=== PATIENT | female | born 1945 | race Caucasian/White ===

== ENCOUNTER 2022-02-13 13:01 | Outpatient (REF) | payer MEDICARE, SELFPAY ==
--- NOTE | ~2022-02-13 | MM_ITS ---
EXAMINATION: BONE DENSITOMETRY CLINICAL INDICATION: Osteoporosis. COMPARISON: Previous BD dated 11/07/2019 and baseline BD dated 10/27/2017. TECHNIQUE: Using a tapviva DXA System (software version: 13.1) manufactured by [employer], dual-energy x-ray absorptiometry was performed of the lumbar spine and left hip. The images are of good technical quality. Summary results are attached. FINDINGS: AP SPINE L1-L4 (excluding L3): The data of L1-L4 has been changed to exclude the L3 vertebral body, because degenerative changes at this level may cause overestimation of lumbar spine density. Current: BMD 0.859 g/cm2, Z-score -1.4, T-score -2.6, osteoporosis, 3.6% increase from previous, 6.7% increase from baseline (<5% change is not significant). Prior: BMD 0.829 g/cm2. Baseline: BMD 0.805 g/cm2. LEFT FEMUR, NECK: Current: BMD 0.830 g/cm2, Z-score 0.1, T-score -1.5, osteopenia. Prior: BMD 0.742 g/cm2. Baseline: BMD 0.686 g/cm2. LEFT FEMUR, TOTAL: Current: BMD 0.932 g/cm2, Z-score 0.8, T-score -0.6, normal, 9.1% increase from previous, 14.2% increase from baseline (<5% change is not significant). Prior: BMD 0.854 g/cm2. Baseline: BMD 0.816 g/cm2. IDENTIFIED RISK FACTORS: Menopause, history of fracture (adult), osteoporosis. HISTORY OF FRACTURE: Wrist. MEDICATIONS: Calcium, vitamin D. MM/XR DEXA axial skeleton IMPRESSION: 1. DIAGNOSIS: Osteoporosis based on the lowest T-score value of -2.6 in the lumbar spine applying World Health Organization criteria. 2. 10-YEAR FRACTURE RISK PREDICTION, FRAX: According to the guidelines, FRAX calculation should only be performed on patients in the osteopenia bone density category. Therefore, FRAX was not performed on this patient. 3. Treatment Recommendations: NOF guidelines recommend consideration for treatment in postmenopausal women and men age 50 and older presenting with the following: -A hip or vertebral (clinical or morphometric) fracture. -T-score less than or equal to -2.5 at the femoral neck or spine after appropriate evaluation to exclude secondary causes. -Low bone mass at the hip or spine and a 10-year fracture probability by FRAX of greater than or equal to 3% for hip fracture or greater than or equal to 20% for major osteoporotic fracture based on the [place] adapted WHO algorithm. 4. Other Recommendations: All treatment decisions require clinical judgment and consideration of individual patient factors, including patient preferences, comorbidities, previous drug use, risk factors not captured in the FRAX model (e.g. frailty, falls, vitamin D deficiency, increased bone turnover, interval significant decline in bone density) and possible under or overestimation of fracture risk by FRAX. Additional medical evaluation for secondary cause of low bone mineral density may be appropriate. FUTURE SCAN RECOMMENDATION: People with diagnosed cases of osteoporosis or at high risk for fracture should have regular bone mineral density tests. For patients eligible for Medicare, routine testing is allowed once every 2 years. The testing frequency can be increased to one year for patients who have rapidly progressing disease, those who are receiving or discontinuing medical therapy to restore bone mass, or have additional risk factors.
== END 2022-02-13 13:02 | disposition home or self-care (01) ==
LOC: HO.MAMMO 13:01
PROVIDERS: PCP Internal Medicine Geriatric Medicine; Visit Provider Internal Medicine Geriatric Medicine
DX: Z13.820 Encounter for screening for osteoporosis (principal); M81.0 Age-related osteoporosis without current pathological fracture; Z78.0 Asymptomatic menopausal state
CPT/HCPCS: 77080

== ENCOUNTER 2022-12-23 07:53 | Outpatient (AMB) | payer MEDICARE, SELFPAY ==
[2022-12-23 08:08] VITALS: BP 122/70; PULSE 89; TEMP 36.3; O2SAT 97; BMI 28.3
--- NOTE | 2022-12-23 08:08 | MHC.OFFVIS ---
Intake Vital Signs 12/23/22 08:08 Height 5 ft 3 in Weight 159 lb 9.835 oz BMI 28.3 BP 122/70 Blood Pressure Location Lt brachial Position Sitting Pulse 89 Pulse Source Pulse Oximeter Temp 97.4 F Temp Source Skin Pulse Oximetry (%) 97 Intake Visit Reasons: +MOLLY/Elev ESR - Confirmed Intake Note: New pt presents today for consult. C/o headaches, dizziness. Reports she broke L1, no surgeries; multiple fractures Meat Stringer Required: Yes Meat Stringer Language: Video Effects Editor Name: Marla Accompanied by: Daughter in law Marla Allergies Iodinated Contrast Media [IODINATED CONTRAST- ORAL AND IV DYE] Allergy (Unknown, Verified 12/23/22 08:09) SEVERE REACTION 08/21/2018 Medication List - Last Reconciled 12/23/22 by Madhu Umaña MD alendronate 70 mg PO QWEEK atorvastatin 40 mg PO DAILY calcium carbonate 500 mg PO BID cholecalciferol (vitamin D3) 50 mcg PO QAM omeprazole 20 mg PO DAILY prednisone 10 mg PO DAILY HPI HPI Comments History of Present Illness Details The patient presents with a iribvole-fw-hok who translates. The [id number] also has the patient's daughter on the phone who has additional history. Patient does live alone but has much help in the home from the family. The patient had the development of lower back pain over the last few years. She also has chronic LLQ abdominal pain. The back paim was apparently worse about 6 months ago with some right lateral pain that radiated to the right buttock. She then had a fall and that exacerbated the pain. This cause some right hip pain. She received a corticosteroid injection for the hip pain in the bursal region and that has helped that area. There is still back pain. This is now more commonly occurring in the left lumbar region. She was told she had an L1 fracture with this fall. She is now on alendronate for osteoporosis. She also had blood test showing a sed rate is 70, rheumatoid factor negative, and a positive MOLLY. She was treated with prednisone, presumably for the headache. The prednisone made her jittery so she tapered off it. The headache is somewhat better now. She does not have any episodic visual symptoms or jaw claudication. [facility] Surgical History (Updated 12/23/22 @ 08:12 [facility] H/O wrist surgery Hx of colonoscopy Family History (Updated 04/25/20 @ 14:56 by Melanie Taylor, [facility]) Father Diabetes Mother Diabetes Social History (Updated 12/23/22 @ 08:11 by Freda Rapp [facility]) Alcohol intake: current Alcohol intake frequency: does not drink Patient Tobacco Use Status: Never used Tobacco Review of Systems Const Details: Some intentional weight loss in the last year. This has enabled her to get off medications for type 2 diabetes. Negative for appetite change, fever, chills, malaise and fatigue Eyes Details: She regularly uses eyedrops for dry eyes. Negative for vision change, and dizziness ENT Details: Some oral dryness as well. No trouble with swallowing solids. Negative for hearing change, tinnitus, oral ulcer, nose bleeds. Card Details: Negative chest pain, edema and syncope Resp Details: Very rarely she uses an inhaler for asthma. Recently negative for SOB, cough and wheezing GI Details: Some constipation and chronic left lower quadrant pain. Recent CT scan did show some diverticulosis but no other abnormalities. Negative indigestion/heartburn, nausea, abdominal pain, bowel changes, diarrhea, constipation and bloody stool. Details: Negative for dysuria, hematuria, nocturia, decreased force/flow and genital discharge Skin/Breast Details: Negative for itching, rash, hives, Raynaud's symptoms, sun sensitivity, and skin cancer Neuro Details: Negative for epilepsy, palsy, stroke, changes in speech, tingling and weakness Psych Details: Negative for anxiety, depression and stress Endo Details: Negative for polyuria and polydypsia Luis E/Lymph Details: Negative for excessive bruising or bleeding. Physical Exam Vital Signs: Last Vital Signs Temp 97.4 F 12/23/22 08:08 Pulse 89 12/23/22 08:08 BP 122/70 12/23/22 08:08 Pulse Ox 97 12/23/22 08:08 BMI result Body Mass Index 28.3 APPEARANCE: Patient in no acute distress EYES no redness, pupils equal and reactive to light, eyelids normal. No temporal artery tenderness, redness or swelling. EARS: External ear normal, canal clear and tympanic membrane normal. NOSE/SINUS: Airflow through both nares, no nasal discharge, no bleeding THROAT: Oral mucosa moist, no ulcerations. No TMJ tenderness NECK: No thyromegaly or masses, no adenopathy, trachea midline. HEART: Regulrar rhythm, S1-S2 heard, no murmurs, rubs or gallops. LUNG: Clear to percussion and auscultation ABD: Normal bowel sounds, no organomegaly, masses or tenderness. EXTREMITIES: No edema, no calf tenderness, normal peripheral pulses. NEURO: Oriented and alert x3. No focal weakness. Reflexes symmetric. Gait normal. SKIN: No inflammatory or neoplastic lesions. Normal color and turgor JOINT EXAM:.?? Cervical Spine:.? Full range of motion without pain; no tenderness. Thoracic Spine:.? No scoliosis.? No tenderness on palpation. Lumbar Spine:.? Alignment normal.? Mild pain with extremes of normal range of motion. No tenderness. Chest Wall:.? No tenderness, swelling, increased warmth or erythema. Hands:.? Normal pain-free range of motion without tenderness, swelling, increased warmth or erythema. Able to make a full fist and has a good appliance service representative strength. Wrists:.? Left: Evidence for previous surgery for a fracture. She flexes and extends to 60 degrees without pain. No soft tissue swelling, tenderness, redness or warmth. Right: Normal pain-free range of motion without tenderness, swelling, increased warmth or erythema. Elbows:. Normal pain-free range of motion without tenderness, swelling, increased warmth or erythema. Shoulders:.?? Full range of motion without pain. No tenderness, weakness, swelling, increased warmth or erythema. Hips:.? Left: Mild lumbar pain with extremes of external rotation or abduction. No groin pain with motion. Right: Full range of motion without pain. Hip bursa:.? Mild bilateral trochanteric tenderness. Knees:.?? Normal pain-free range of motion without tenderness, swelling, increased warmth or erythema.? There is no effusion or crepitation Ankles:.? Normal pain-free range of motion without tenderness, swelling, increased warmth or erythema. Feet:.? Normal pain-free range of motion without tenderness, swelling, increased warmth or erythema. Tender points:.? Mild tenderness to digital palpation at the lateral epicondyle, knees, greater trochanter area bilaterally. ? Results Reviewed Results Reviewed: 10/2022 Lab from PCP: MOLLY 1:640, centromere pattern. ESR 70, RF neg Assessment & Plan Assessment & Plan (1) MOLLY positive: Code(s): R76.8 - Other specified abnormal immunological findings in serum (2) Osteoporosis: Comment: alendronate started 2022 Code(s): M81.0 - Age-related osteoporosis without current pathological fracture (3) Osteoarthritis of lumbar spine: Code(s): M47.816 - Spondylosis without myelopathy or radiculopathy, lumbar region Plan She had a positive MOLLY with a centromere pattern. She does not realy have findings of SLE or CREST syndrome. We will check into this further with other more specific serologies, inflammatory markers, and CBC. The back pain is consistent with lumbar degenerative disease. I think the pain from the fracture has subsided now. She is on the alendronate for osteoporosis in that seems appropriate. She still has this left lower quadrant pain but had a CT scan done back in May. That did not show evidence for any other pathology other than diverticulosis. She apparently did receive some physical therapy after the lumbar fracture. Light aerobic activities are encouraged. We will get back to her with the results of her studies but I do not see reason for follow-up at this point Rheumatology. Orders: Orders Comprehensive Met. Panel Today M81.0 - Age-related osteoporosis without current pathological fracture, R76.8 - Other specified abnormal immunological findings in serum C Reactive Protein Today M81.0 - Age-related osteoporosis without current pathological fracture, R76.8 - Other specified abnormal immunological findings in serum Complete Blood Count Auto Diff Today M81.0 - Age-related osteoporosis without current pathological fracture, R76.8 - Other specified abnormal immunological findings in serum Erythrocyte Sedimentation Rate Today M81.0 - Age-related osteoporosis without current pathological fracture, R76.8 - Other specified abnormal immunological findings in serum Complement C3 Today M81.0 - Age-related osteoporosis without current pathological fracture, R76.8 - Other specified abnormal immunological findings in serum Complement C4 Today M81.0 - Age-related osteoporosis without current pathological fracture, R76.8 - Other specified abnormal immunological findings in serum Anti DNA DS Antibody Today M81.0 - Age-related osteoporosis without current pathological fracture, R76.8 - Other specified abnormal immunological findings in serum Anti Extractable Nuclear Ag Today M81.0 - Age-related osteoporosis without current pathological fracture, R76.8 - Other specified abnormal immunological findings in serum Protein Electrophoresis,Ran Ur Today M81.0 - Age-related osteoporosis without current pathological fracture, R76.8 - Other specified abnormal immunological findings in serum Coding Level of Care Code New Pt Level 3 (56078) Diagnoses MOLLY positive R76.8 Osteoporosis M81.0 Osteoarthritis of lumbar spine M47.816
== END 2022-12-23 08:52 | disposition home or self-care (01) ==
PROVIDERS: PCP Internal Medicine Geriatric Medicine; Visit Provider Internal Medicine Rheumatology
DX: R76.8 Other specified abnormal immunological findings in serum (principal); M81.0 Age-related osteoporosis without current pathological fracture; M47.816 Spondylosis without myelopathy or radiculopathy, lumbar region
CPT/HCPCS: 99203

== ENCOUNTER → 2022-12-23 07:53 | Outpatient (BNVA) | payer MEDICARE, SELFPAY | PROVIDERS: PCP Internal Medicine Geriatric Medicine; Visit Provider Internal Medicine Rheumatology | DX: R76.8 Other specified abnormal immunological findings in serum (principal); M81.0 Age-related osteoporosis without current pathological fracture; M47.816 Spondylosis without myelopathy or radiculopathy, lumbar region | CPT/HCPCS: 99202 ==

== ENCOUNTER 2022-12-23 08:55 | Outpatient (REF) | payer MEDICARE, SELFPAY ==
[2022-12-23 10:54] LABS: MANUAL DIFF FLAG NO
[2022-12-23 11:00] LABS: Basophils Absolute Auto 0.1 X10*3/uL (0.0-0.2); Basophils Percent Auto 0.4 % (0-2); Eosinophils Percent Auto 0.2 % (0-4); Hematocrit 47.8 % (37.0-47.0); Hemoglobin 15.1 g/dl (12.0-16.0); Imm Gran Abs Auto 0.08 X10*3/uL (0.00-0.03); Imm Gran Pct Auto 0.6 % (0.0-0.4); Lymphocytes Absolute Auto 1.5 X10*3/uL (1.2-4.9); Mean Corpuscular HGB Conc 31.6 g/dl (31.0-35.0); Mean Corpuscular Hemoglobin 31.4 pg (27.0-33.0); Mean Corpuscular Volume 99.4 fL (80.0-98.0); Mean Platelet Volume 12.7 fL (9.4-12.3); Monocytes Absolute Auto 0.8 X10*3/uL (0.1-1.2); Monocytes Percent Auto 5.8 % (2-11); Neutrophils Absolute Auto 10.8 x10*3/uL (2.0-8.3); Platelet Count 195 X10*3/uL (160-400); Red Blood Count 4.81 X10*6/uL (4.20-5.50); Red Cell Distribution Width 13.2 % (11.0-16.0); White Blood Count 13.2 X10*3/uL (4.8-10.8)
[2022-12-23 11:07] LABS: Alanine Aminotransferase 17 U/L (0-31); Albumin Level 3.9 g/dL (3.5-5.0); Alkaline Phosphatase 52 U/L (39-117); Anion Gap 13 (12-20); Aspartate Amino Transferase 17 U/L (5-31); Blood Urea Nitrogen 19 mg/dL (9-16); C Reactive Protein 0.12 mg/dL (< or = 0.50); Calcium 9.9 mg/dL (8.4-10.2); Carbon Dioxide 29 mmol/L (22-29); Chloride 107 mmol/L (96-108); Estimated Glomerular Filt Rate > 60; Glucose Random 122 mg/dL (60-115); Potassium 4.4 mmol/L (3.3-5.1); Sodium 145 mmol/L (135-145); Total Protein 6.5 g/dL (6.5-8.0)
[2022-12-23 11:42] LABS: Erythrocyte Sedimentation Rate 4 MM/HR (0-20)
[2022-12-24 17:28] LABS: Complement C3 136 mg/dL (83-193)
[2022-12-24 21:52] LABS: Anti DNA DS Antibody <1 IU/mL; SM/Ribonucleoprotein Ab <1.0 NEG AI (<1.0 NEG); Smith Protein <1.0 NEG AI (<1.0 NEG)
[2022-12-29 10:48] LABS: PEU-Protein Creat Ratio Rand 0.131 (0.024-0.184); PEU-Rand. Prot/Creat Ratio 131 mg/g creat (24-184); PEU-Random Ur. Gamma Globulin 0 %; PEU-Random Urine A1 Globulin 0 %; PEU-Random Urine A2 Globulin 0 %; PEU-Random Urine Albumin 100 %; PEU-Random Urine Beta Globulin 0 %; PEU-Random Urine Creatinine 107 mg/dL (20-275); PEU-Random Urine Protein 14 mg/dL (5-24)
== END 2022-12-23 08:56 | disposition home or self-care (01) ==
LOC: HO.10HDL 08:55
PROVIDERS: Visit Provider Internal Medicine Rheumatology
DX: M81.0 Age-related osteoporosis without current pathological fracture (principal); M47.816 Spondylosis without myelopathy or radiculopathy, lumbar region; R76.8 Other specified abnormal immunological findings in serum
CPT/HCPCS: 80053; 82570; 84156; 84166; 85025; 85652; 86140; 86160; 86225; 86235

== ENCOUNTER 2022-12-24 15:16 | Outpatient (REF) | payer MEDICARE, SELFPAY ==
[2022-12-24 17:13] LABS: Erythrocyte Sedimentation Rate 7 MM/HR (0-20)
== END 2022-12-24 15:17 | disposition home or self-care (01) ==
LOC: HO.HHCL 15:16
PROVIDERS: Visit Provider Internal Medicine Geriatric Medicine
DX: M35.3 Polymyalgia rheumatica (principal)
CPT/HCPCS: 36415; 85652

== ENCOUNTER 2023-06-24 09:38 | Outpatient (REF) | payer MEDICARE, SELFPAY ==
--- NOTE | ~2023-06-24 | XR_ITS ---
EXAMINATION: XR KNEE, RIGHT CLINICAL INFORMATION: Reason for Exam Chronic right knee pain COMPARISON: None TECHNIQUE: 4 views of the knee FINDINGS: No acute fracture or dislocation. Joint spaces are maintained. No joint effusion. Soft tissues are unremarkable. XR/XR knee RT 4V IMPRESSION: * No acute osseous abnormality.
[2023-06-24 11:52] LABS: MANUAL DIFF FLAG NO
[2023-06-24 12:09] LABS: Basophils Percent Auto 0.5 % (0-2); Eosinophils Absolute Auto 0.1 X10*3/uL (0.0-0.4); Eosinophils Percent Auto 1.4 % (0-4); Hematocrit 46.3 % (37.0-47.0); Hemoglobin 14.8 g/dl (12.0-16.0); Imm Gran Abs Auto 0.02 X10*3/uL (0.00-0.03); Imm Gran Pct Auto 0.3 % (0.0-0.4); Lymphocytes Percent Auto 29.5 % (20-40); Mean Corpuscular Hemoglobin 31.3 pg (27.0-33.0); Mean Corpuscular Volume 97.9 fL (80.0-98.0); Mean Platelet Volume 12.2 fL (9.4-12.3); Monocytes Absolute Auto 0.6 X10*3/uL (0.1-1.2); Monocytes Percent Auto 8.3 % (2-11); Platelet Count 235 X10*3/uL (160-400); Red Blood Count 4.73 X10*6/uL (4.20-5.50); Red Cell Distribution Width 13.6 % (11.0-16.0); White Blood Count 6.6 X10*3/uL (4.8-10.8)
[2023-06-24 12:35] LABS: Alanine Aminotransferase 14 U/L (0-31); Alkaline Phosphatase 54 U/L (39-117); Anion Gap 12 (12-20); Aspartate Amino Transferase 19 U/L (5-31); Bilirubin Total 1.3 mg/dL (0.0-1.0); Blood Urea Nitrogen 17 mg/dL (9-16); Calcium 9.3 mg/dL (8.4-10.2); Carbon Dioxide 27 mmol/L (22-29); Chloride 107 mmol/L (96-108); Cholesterol 252 mg/dL (<200); Estimated Glomerular Filt Rate > 60; Glucose Random 99 mg/dL (60-115); HDL Cholesterol 57 mg/dL (>40); LDL Cholesterol Calculated 171 mg/dL (<100); Potassium 4.3 mmol/L (3.3-5.1); Sodium 142 mmol/L (135-145); Total Protein 6.9 g/dL (6.5-8.0); Triglycerides 121 mg/dL (<150)
== END 2023-06-24 09:39 | disposition home or self-care (01) ==
LOC: HO.HHCL 09:38
PROVIDERS: Visit Provider Internal Medicine Geriatric Medicine
DX: R07.9 Chest pain, unspecified (principal); E11.9 Type 2 diabetes mellitus without complications; M25.561 Pain in right knee; G89.29 Other chronic pain; L98.9 Disorder of the skin and subcutaneous tissue, unspecified
CPT/HCPCS: 36415; 73564; 80053; 80061; 85025

== ENCOUNTER 2023-06-30 15:33 | Outpatient (REF) | payer MEDICARE, SELFPAY ==
--- NOTE | ~2023-06-30 | XR_ITS ---
EXAMINATION: XR THORACOLUMBAR SPINE CLINICAL INFORMATION: Back pain after falling COMPARISON: None available. TECHNIQUE: 2 views FINDINGS: No fracture or destructive process in the thoracic spine. Severe compression fracture L1 again observed. Paraspinal soft tissues normal. XR/XR thoracic spine 2V IMPRESSION: Vertebral planum L1.
--- NOTE | ~2023-06-30 | XR_ITS ---
EXAMINATION: XR HIP, LEFT CLINICAL INFORMATION: Patient fell last week now with pain COMPARISON: None available. TECHNIQUE: Two views of the left hip. FINDINGS: No fracture, dislocation or destructive process or erosive change. XR/XR hip LT min 2V IMPRESSION: Negative
--- NOTE | ~2023-06-30 | XR_ITS ---
EXAMINATION: XR LUMBOSACRAL SPINE WITH OBLIQUES CLINICAL INFORMATION: Pain after falling COMPARISON: 10/20/2017 TECHNIQUE: AP, both oblique, and lateral views of the lumbar spine. Lateral view of the lumbosacral junction. FINDINGS: There is a severe compression fracture L1 which has the appearance of a vertebral planum which is new. No other fractures observed. Large stool burden noted which obscures the sacrum. No evidence for spondylolysis or spondylolisthesis. XR/XR lumbar spine 4V min IMPRESSION: Severe compression fracture L1 new from the 2018 exam.
--- NOTE | ~2023-06-30 | XR_ITS ---
EXAMINATION: XR HAND, RIGHT CLINICAL INFORMATION: Pain after falling COMPARISON: None available. TECHNIQUE: PA, lateral, and oblique views of the right hand. FINDINGS: Degenerative change at the first CMC. Joint spaces preserved. No erosive change. In the right hand and wrist, no fracture, dislocation or destructive process. XR/XR hand RT min 3V IMPRESSION: No acute findings.
--- NOTE | ~2023-06-30 | XR_ITS ---
EXAMINATION: XR KNEE, LEFT CLINICAL INFORMATION: Pain after falling COMPARISON: None available. TECHNIQUE: Four views of the left knee. FINDINGS: No joint effusion, fracture, dislocation or destructive process. The joint spaces appear well preserved. XR/XR knee LT 3V IMPRESSION: Unremarkable study.
== END 2023-06-30 15:34 | disposition home or self-care (01) ==
LOC: HO.HHCX 15:33
PROVIDERS: Visit Provider Internal Medicine
DX: S32.010D Wedge compression fracture of first lumbar vertebra, subsequent encounter for fracture with routine healing (principal); W01.0XXD Fall on same level from slipping, tripping and stumbling without subsequent striking against object, subsequent encounter
CPT/HCPCS: 72070; 72110; 73130; 73502; 73562